=== PATIENT | male | born 1955 | race Caucasian/White ===

== ENCOUNTER 2022-04-27 08:44 | Outpatient (REF) | payer OTHER, SELFPAY ==
--- NOTE | ~2022-04-27 | XR_ITS ---
EXAMINATION: XR CHEST CLINICAL INFORMATION: Cough. COMPARISON: None TECHNIQUE: 2 views of the chest were obtained. FINDINGS: No significant abnormality is noted involving the heart, lungs, mediastinum, bony thorax or soft tissues. XR/XR chest 2V IMPRESSION: No acute cardiopulmonary process.
== END 2022-04-27 08:45 | disposition home or self-care (01) ==
LOC: HO.HMGCX 08:44
PROVIDERS: PCP Internal Medicine; Visit Provider Internal Medicine
DX: R05.9 Cough, unspecified (principal)
CPT/HCPCS: 71046

== ENCOUNTER 2023-12-15 16:53 | Emergency (ER) | payer MEDICARE, SELFPAY ==
--- NOTE | ~2023-12-15 | XR_ITS ---
EXAMINATION: XR KNEE, LEFT CLINICAL INFORMATION: Fall on metal rake. Pain. COMPARISON: None available. TECHNIQUE: Four views of the left knee. FINDINGS: No fracture or joint effusion. Alignment is anatomic. Joint spaces are maintained. No abnormal soft tissue calcification. XR/XR knee LT 3V IMPRESSION: Normal left knee. Electronically signed by: Anson Delgado MD 12/15/2023 06:15 PM EDT RP
[2023-12-15 17:15] VITALS: BP 123/55; PULSE 63; RESP 18; TEMP 36.7; O2SAT 99; BMI 23.0
--- NOTE | 2023-12-15 17:15 | ED.LOWEXIN ---
HPI - Extremity Injury (Lower) General Chief Complaint: Wound/Laceration Stated Complaint: fell on an iron rake, knee inj Time Seen by Provider: 12/15/23 19:26 Source: patient, RN notes reviewed and old records reviewed Mode of arrival: ambulatory History of Present Illness ED Provider: Sybil Bpatiste PA-C HPI Narrative: 68-year-old male with past medical history CAD s/p stent on ASA and Plavix presenting to the ED many of the left knee pain, swelling, and laceration s/p trip and fall this morning. States got tangled up in jennifer and fell on to metal rake. Tetanus unknown. Denies head trauma or LOC. Has been ambulatory with pain. Denies injury to other area. Denies symptoms prior to fall Related Data Previous Rx's ?Medication ?Instructions ?Recorded oxycodone 5 mg capsule 5 mg PO Q8H PRN pain (scale score 12/15/23 7-10) #6 caps Allergies Allergy/AdvReac Type Severity Reaction Status Date / Time No Known Allergies Allergy Verified 12/15/23 17:17 Review of Systems Review of Systems: Constitutional: No Fever, No Chills Cardiovascular: No Chest Pain, No SOB Respiratory: No Cough Gastrointestinal: No Nausea, No Vomiting, No Abdominal pain Musculoskeletal: + joint pain, No Myalgias, + Joint Swelling Skin: + Skin Lesions, No rash Neuro: No Weakness, No Numbness, No Paresthesias Yes all other systems are reviewed and are negative Constitutional: Constitutional: Reports as per [facility] Past Medical History Attestation statement: The following information was validated with the patient. Source: old records reviewed Social History Social History Advance Directives: No Advance Directives Information Provided: No Do you have a plan to hurt others: No Plan Physical Exam Vital Signs: Vital Signs: Last Vital Signs Temp 98.1 F 12/15/23 17:15 Pulse 63 12/15/23 17:15 Resp 18 12/15/23 17:15 BP 123/55 L 12/15/23 17:15 Pulse Ox 99 12/15/23 17:15 O2 Del Method Room Air 12/15/23 17:15 BMI result Body Mass Index 23.0 Const: General: cooperative, healthy appearing and no acute distress Orientation/consciousness: patient oriented x3 Limitations: no limitations HEENT: Head: Yes normal to inspection and Yes atraumatic Ears: hearing grossly normal bilaterally General nose exam: Normal external nose present Face and sinus: Yes normal facial exam Eyes: General: appearance normal, both eyes and all related structures EOM: EOMs intact bilaterally Neck: Neck: Yes normal visual inspection and Yes no meningeal signs Resp: Effort & Inspection: normal respiratory effort and no respiratory distress Cardio: Rate: regular rate Skin: Rashes: no rashes Neuro: General: patient oriented x3, tone normal and no meningeal signs Cranial nerves: Yes CN's II-XII intact bilaterally Gait exam (Neuro): Normal gait present Extrem: Other: Left knee with swelling and diffuse ttp. limited ROM 2/2 pain/swelling. No warmth. NV intact distally 1cm laceration noted to lateral aspect, bleeding controlled Two small superficial lacerations Course Course Course Narrative: This is a Rapid Medical Exam performed in triage by Sybil Baptiste PA-C. Full HPI, ROS and PE to be performed by primary ED provider. 68 yo M w/PMHx CAD s/p stent on ASA and plavix presenting to the ED c/o L knee pain and swelling s/p being tangled in jennifer & falling on metal rake. PE: ambulating w/ limping gait, L knee swollen w/puncture wound Plan: X-ray, suture repair, update tetanus XR knee LT 3V IMPRESSION: Normal left knee. > Kirk wrap, knee immobilizer and crutches applied Results discussed with patient including worrisome signs and symptoms and strict return precautions, and when to return to the emergency department. They verbalized understanding and feel safe for discharge at this time. Medications Administered Discontinued Medications Generic Name Dose Route Start Last Admin Trade Name Freq PRN Reason Stop Dose Admin Diphtheria/Tetanus/Acell Pertussis 0.5 ml 12/15/23 17:15 12/15/23 19:59 Diphth,Pertus(Acell),Tet Adult 0.5 Ml Syringe IM 12/15/23 17:16 0.5 ml .ONCE ONE Administration Lidocaine HCl 5 ml 12/15/23 19:32 12/15/23 19:59 Lidocaine Hcl 1 % Mpf 5 Ml Vial INFILTRATI 12/15/23 19:33 5 ml ONCE ONE Administration Oxycodone HCl 5 mg 12/15/23 20:10 12/15/23 20:13 Oxycodone Hcl Immed Release 5 Mg Tablet PO 12/15/23 20:11 5 mg ONCE ONE Administration Medical Decision Making Medical Decision Making MDM Narrative: 68-year-old male with past medical history CAD s/p stent on ASA and Plavix presenting to the ED many of the left knee pain, swelling, and laceration s/p trip and fall this morning. On exam VSS, NAD, nontoxic appearing, physical exam as noted above. Concern for fracture vs tendon/ligamental injury or meniscal injury. No evidence of septic joint/arthritis. Laceration needing suture repair Plan: X-ray, pain control, suture repair, tetanus update Please refer to course for remaining clinical decision making, interpretation of labs/imaging results, and discussions with consultants and/or family members. Differential Diagnosis Differential Diagnoses: The differential diagnosis associated with the presentation includes As above Radiology Impression Discussion of test interpretation with radiology: I have reviewed the radiologist's reading. External Record Review External record reviewed: Inpatient record, Office record, Outpatient record, Prior outpatient labs, Prior outpatient radiology, Primary care record and Outside ED record Tests considered The following testing was considered but not selected: As above Procedures Laceration Laceration 1: Site: lower extremity Side (If applicable): left Size (cm): 1 Description: linear Depth: simple, single layer Local Anesthetic: lidocaine 1% Amount of anesthesia used (mL): 2 Pre-repair: wound explored Skin layer closed with: nylon Size (cm): 3-0 Number of sutures: 2 Technique: simple, interrupted Orthopedic Splinting/Casting Injury #1: Side: left Lower Extremity Injury Location: knee Lower Extremity Immobilizer: knee immobilizer and Kirk wrap Other Orthopedic Equipment: crutches Discharge Plan Discharge Clinical Impression: Laceration, Injury of knee Patient Disposition: Home, Self-Care Instructions: Laceration (DC), Knee Pain (ED), Knee Immobilizer (ED) Additional Instructions: Your knee x-ray is unremarkable. You likely need an MRI Please ice and elevate. Take Tylenol and Motrin as needed for pain Oxycodone is an opiate pain medication, take only when pain is severe for the next 3 days Use Kirk wrap, crutches, and knee immobilizer as needed Your wounds were repaired today in the emergency department. Keep dry and clean. You need to return to any emergency department, urgent care, or your PCPs office in 7-10 days for suture removal Apply bacitracin and or Neosporin daily Once sutures are removed apply anti scar cream like Mederma If area begins look infected, is red, there is drainage, streaking, or you have fever please return to the emergency department Prescriptions: New oxycodone 5 mg capsule 5 mg PO Q8H PRN (Reason: pain (scale score 7-10)) Qty: 6 0RF Rx Instructions: Partial Fill upon patient request. Referrals: [facility] [place] [facility] [Provider Group] Physician,Unknown J [Primary Care Provider] - 5 days Discharge Date/Time: 12/15/23 20:32 Print Language: Somali
[2023-12-15] MEDS: Diphth,Pertus(ACell),Tet Adult 0.5 ML SYRINGE IM (19:59)
[2023-12-15] MEDS: Lidocaine HCl 1 % MPF 5 ML VIAL INFILTRATI (19:59)
[2023-12-15] MEDS: oxyCODONE HCl Immed Release 5 MG TABLET PO (20:13)
[2023-12-15 20:30] VITALS: BP 123/55; PULSE 63; RESP 18; TEMP 36.7; O2SAT 99
[2023-12-15 20:31] VITALS: BP 134/71; PULSE 78; RESP 20; TEMP 36.8; O2SAT 98
== END 2023-12-15 20:32 | disposition home or self-care (01) ==
PROVIDERS: Emergency Provider Emergency Medicine Emergency Medical Services
DX: S81.012A Laceration without foreign body, left knee, initial encounter (principal); M25.562 Pain in left knee; I25.10 Atherosclerotic heart disease of native coronary artery without angina pectoris; Y93.H1 Activity, digging, shoveling and raking; Y92.096 Garden or yard of other non-institutional residence as the place of occurrence of the external cause; Y99.8 Other external cause status; Z23 Encounter for immunization; Z79.899 Other long term (current) drug therapy
CPT/HCPCS: 12001; 29505; 73562; 90715; 99283; 99284